=== PATIENT | female | born 1985 | race Caucasian/White ===

== ENCOUNTER 2022-03-27 13:06 | Emergency (ER) | payer OTHER ==
[~2022-03-27 13:06] MED LIST: BENTYL 20MG TAB20 MG PO; BUSPAR 5MG TABLE5 MG PO; COZAAR100 MG PO; IBUPROFEN600 MG PO; K-DUR TAB 20 M20 MEQ PO; LATUDA80 MG PO; LORTAB 5-325 M1 EACH PO; NORCO 5-325 TA1 EACH PO; TRAZODONE HCL100 MG PO; ZOFRAN ODT 4 MG4 MG SL; ZOLOFT100 MG PO
[2022-03-27 14:49] LABS: HEMOGLOBIN 12.2 gm/dl (12.3-15.3); RED BLOOD COUNT 4.07 M/UL (4.00-5.10); WHITE BLOOD COUNT 5.4 K/UL (4.5-11.0)
[2022-03-27 15:15] LABS: BUN/CREATININE RATIO 15 (0-10)
== END 2022-03-27 16:47 | disposition home or self-care (01) ==
LOC: ER1 13:06
PROVIDERS: Family Medicine
DX: S09.90XA Unspecified injury of head, initial encounter (principal); S13.9XXA Sprain of joints and ligaments of unspecified parts of neck, initial encounter; S23.3XXA Sprain of ligaments of thoracic spine, initial encounter; S33.5XXA Sprain of ligaments of lumbar spine, initial encounter; S46.911A Strain of unspecified muscle, fascia and tendon at shoulder and upper arm level, right arm, initial encounter; E87.6 Hypokalemia; E83.42 Hypomagnesemia; F31.9 Bipolar disorder, unspecified; F13.20 Sedative, hypnotic or anxiolytic dependence, uncomplicated; R42 Dizziness and giddiness; I10 Essential (primary) hypertension; F17.200 Nicotine dependence, unspecified, uncomplicated; Z91.041 Radiographic dye allergy status; Z88.8 Allergy status to other drugs, medicaments and biological substances; V43.52XA Car driver injured in collision with other type car in traffic accident, initial encounter; Y92.410 Unspecified street and highway as the place of occurrence of the external cause
CPT/HCPCS: 70450; 72125; 72128; 72131; 73060; 73090; 73130; 80053; 82550; 82553; 83735; 84439; 84443; 84484; 84703; 85025; 99284

== ENCOUNTER 2022-07-03 13:23 | Emergency (ER) | payer MEDICARE ==
[2022-07-03] MEDS ORDERED: NAPROSYN500 MG PO (14:34)
== END 2022-07-03 15:36 | disposition home or self-care (01) ==
LOC: ER1 13:23
DX: M25.512 Pain in left shoulder (principal); R40.2410 Glasgow coma scale score 13-15, unspecified time; R00.0 Tachycardia, unspecified; F17.200 Nicotine dependence, unspecified, uncomplicated; Z90.49 Acquired absence of other specified parts of digestive tract; Z91.041 Radiographic dye allergy status; Y04.0XXA Assault by unarmed brawl or fight, initial encounter
CPT/HCPCS: 73030; 99283